=== PATIENT | male | born 1980 | race American Indian/Alaskan Native ===

== ENCOUNTER 2017-12-27 03:25 | Emergency (ER) | payer SELFPAY ==
[2017-12-27 03:34] VITALS: BP 109/67
--- NOTE | 2017-12-27 04:21 | XRay Report ---
FINAL REPORT EXAM: XR ANKLE 2V LT HISTORY: foriegn object in ankle/needle COMPARISONS: None. FINDINGS: Two views left ankle A fine linear metallic fragment is present at the distal aspect of the left lateral malleolus measuring up to 13 millimeters in length. Mild overlying soft tissue swelling. Intact ankle mortise. No fracture. IMPRESSION: A 13 millimeter needle is present at the distal aspect of the left lateral malleolus.
[2017-12-27] MEDS ORDERED: BOOSTRIX IM ONE (05:02)
[2017-12-27] MEDS ORDERED: MOTRIN PO ONE (05:03)
[2017-12-27] MEDS ORDERED: NORCO 5/325 PO ONE (05:03)
--- NOTE | 2017-12-27 05:03 | Emergency Department Report ---
- General Chief complaint: Skin/Abscess/Foreign Body Stated complaint: FOREIGN OBJECT RT FOOT Time Seen by Provider: 12/27/17 04:26 Source: patient, EMS Mode of arrival: Wheelchair Limitations: No Limitations - History of Present Illness Initial comments: 37-year-old male presents with complaint of accidentally rolling over in bed and hitting a sewing needle he left on his bed. States that it is embedded in his left ankle region near his left lateral malleolus. Patient is ambulatory and denies any other injuries. Single visible puncture wound to left lateral malleolus region. Unknown tetanus vaccine status. MD complaint: foreign body, other -: During the night Severity: moderate Severity scale (0 -10): 7 Quality: sharp Consistency: constant Worsens with: palpation - Related Data Previous Rx's Medication Instructions Recorded Last Taken Type Bacitracin Zinc [Antibiotic] 1 applicatio TP BID #1 oint...g. 12/27/17 Unknown Rx Ibuprofen [Motrin] 800 mg PO Q8HR PRN #20 tablet 12/27/17 Unknown Rx Sulfamethoxazole/Trimethoprim 1 each PO BID #14 tablet 12/27/17 Unknown Rx [Bactrim DS TAB] Allergies Allergy/AdvReac Type Severity Reaction Status Date / Time No Known Allergies Allergy Unverified 12/27/17 03:34 Abscess Boil HPI - HPI Chief Complaint: Skin/Abscess/Foreign Body Stated Complaint: FOREIGN OBJECT RT FOOT Time Seen by Provider: 12/27/17 04:26 Home Medications: Previous Rx's Medication Instructions Recorded Last Taken Type Bacitracin Zinc [Antibiotic] 1 applicatio TP BID #1 oint...g. 12/27/17 Unknown Rx Ibuprofen [Motrin] 800 mg PO Q8HR PRN #20 tablet 12/27/17 Unknown Rx Sulfamethoxazole/Trimethoprim 1 each PO BID #14 tablet 12/27/17 Unknown Rx [Bactrim DS TAB] Allergies/Adverse Reactions: Allergies Allergy/AdvReac Type Severity Reaction Status Date / Time No Known Allergies Allergy Unverified 12/27/17 03:34 ED Review of Systems ROS: Stated complaint: FOREIGN OBJECT RT FOOT Other details as noted in HPI Constitutional: denies: chills, fever Eyes: denies: eye pain, eye discharge, vision change ENT: denies: ear pain, throat pain Respiratory: denies: cough, shortness of breath, wheezing Cardiovascular: denies: chest pain, palpitations Endocrine: no symptoms reported Gastrointestinal: denies: abdominal pain, nausea, diarrhea Genitourinary: denies: urgency, dysuria Musculoskeletal: denies: back pain, joint swelling, arthralgia Skin: denies: rash, lesions Neurological: denies: headache, weakness, paresthesias Psychiatric: denies: anxiety, depression Hematological/Lymphatic: denies: easy bleeding, easy bruising ED Past Medical Hx - Past Medical History Previous Medical History?: No - Surgical History Past Surgical History?: No - Social History Smoking Status: Current Every Day Smoker Substance Use Type: None - Medications Home Medications: Home Medications Medication Instructions Recorded Confirmed Last Taken Type Bacitracin Zinc [Antibiotic] 1 applicatio TP BID #1 oint...g. 12/27/17 Unknown Rx Ibuprofen [Motrin] 800 mg PO Q8HR PRN #20 tablet 12/27/17 Unknown Rx Sulfamethoxazole/Trimethoprim 1 each PO BID #14 tablet 12/27/17 Unknown Rx [Bactrim DS TAB] ED Physical Exam - General Limitations: No Limitations General appearance: alert, in no apparent distress - Head Head exam: Present: atraumatic, normocephalic - Eye Eye exam: Present: normal appearance - ENT ENT exam: Present: mucous membranes moist - Neck Neck exam: Present: normal inspection - Respiratory Respiratory exam: Present: normal lung sounds bilaterally. Absent: respiratory distress - Cardiovascular Cardiovascular Exam: Present: regular rate, normal rhythm. Absent: systolic murmur, diastolic murmur, rubs, gallop - GI/Abdominal GI/Abdominal exam: Present: soft, normal bowel sounds - Rectal Rectal exam: Present: deferred - Extremities Exam Extremities exam: Present: normal inspection - Expanded Lower Extremity Exam Left Ankle exam: Present: tenderness (visible puncture wound and tenderness left lateral ankle) Neuro vascular tendon exam: Present: no vascular compromise 1 - Puncture wound here - Back Exam Back exam: Present: normal inspection - Neurological Exam Neurological exam: Present: alert, oriented X3, CN II-XII intact, normal gait - Psychiatric Psychiatric exam: Present: normal affect, normal mood - Skin Skin exam: Present: warm, dry, intact, normal color. Absent: rash ED Course Vital Signs 12/27/17 12/27/17 03:28 05:16 Temperature 98.1 F Pulse Rate 83 Respiratory 18 18 Rate Blood Pressure 109/67 O2 Sat by Pulse 99 Oximetry ED Medical Decision Making - Medical Decision Making A/P: Full of metallic foreign body left ankle 1-successful removal of tip of sewing needle. I anesthetized the area with 3-4 mL of 1% lidocaine, achieved good local anesthesia and using curved hemostats was able to easily localize the tip of the sewing needle using hemostats. Was able to staff physical therapy assistant it and easily extracted. Small slit incision made in order to insert hemostats and skin. 2 Prolene sutures placed afterward to shut incision site. Sutures to be removed in approximately 10 days 2-Bactrim twice a day 7 days 3-Motrin when necessary [id number] x-ray shows no presence of foreign body 5- tetanus vaccine updated today. I advised patient to return to the ED for any period 1 drainage or erythema at site of extraction Critical care attestation.: If time is entered above; I have spent that time in minutes in the direct care of this critically ill patient, excluding procedure time. ED Disposition Clinical Impression: Foreign body (FB) in soft tissue Disposition: DC-01 TO HOME OR SELFCARE Is pt being admited?: No Does the pt Need Aspirin: No Condition: Stable Instructions: Soft Tissue Foreign Body (ED), Suture Care (ED), Puncture Wound ( ED) Additional Instructions: Have sutures removed in 10-14 days. Patient can return to the ED for this Prescriptions: Bacitracin Zinc [Antibiotic] 1 applicatio TP BID #1 oint...g. Ibuprofen [Motrin] 800 mg PO Q8HR PRN #20 tablet PRN Reason: Pain Sulfamethoxazole/Trimethoprim [Bactrim DS TAB] 1 each PO BID #14 tablet Referrals: [facility] [Provider Group] - 3-5 Days Time of Disposition: 06:19
[2017-12-27] MEDS ORDERED: XYLOCAINE 2% INFILTRATI ONE (06:03)
--- NOTE | 2017-12-27 08:53 | XRay Report ---
FINAL REPORT EXAM: XR ANKLE 2V LT HISTORY: s/p FB removal of sewing needle COMPARISONS: None. FINDINGS: AP and lateral views left ankle Interval removal of metallic foreign body from the soft tissues just distal to the lateral malleolus. Mild overlying soft tissue swelling and subcutaneous emphysema are present. No residual radiodense foreign body. No gross malalignment or fracture. IMPRESSION: Interval removal of radiodense foreign body from soft tissues just distal to the left lateral malleolus. No residual foreign body or osseous abnormality identified. There is mild associated soft tissue swelling and subcutaneous emphysema.
== END 2017-12-27 06:45 | disposition home or self-care (01) ==
LOC: ED 03:25
DX: S91.042A Puncture wound with foreign body, left ankle, initial encounter (principal); S90.552A Superficial foreign body, left ankle, initial encounter; F17.200 Nicotine dependence, unspecified, uncomplicated; W22.8XXA Striking against or struck by other objects, initial encounter; Y93.89 Activity, other specified; Y99.8 Other external cause status; Y92.89 Other specified places as the place of occurrence of the external cause
CPT/HCPCS: 90471; 90715

== ENCOUNTER 2019-01-09 22:30 | Emergency (ER) | payer OTHER ==
--- NOTE | 2019-01-10 00:04 | XRay Report ---
PROCEDURE: XR SPINE LUMBOSACRAL 2-3V TECHNIQUE: Frontal and lateral views lumbar spine HISTORY: lower back pain COMPARISONS: None FINDINGS: There is mild levocurvature of the lumbar spine. The vertebral heights and disc spaces are maintained. There is no evidence of fracture or subluxation. The paraspinous soft tissues are unremarkable. IMPRESSION: 1. Mild levocurvature of the lumbar spine. 2. No evidence of fracture or subluxation. If there is a clinical concern for fracture, CT imaging may be helpful. If there is no clinical isis rn for fracture but the patient remains symptomatic, MRI may be helpful. This document is electronically signed by Dori Delgado MD., January 10 2019 12:02:01 AM ET
[2019-01-10] MEDS ORDERED: ULTRAM PO ONE (01:12)
--- NOTE | 2019-01-10 01:58 | Emergency Department Report ---
ED Back Pain/Injury HPI - General Chief Complaint: Back Pain/Injury Stated Complaint: BACK PAIN Time Seen by Provider: 01/10/19 01:12 Source: patient Limitations: No Limitations - History of Present Illness Initial Comments: pt presents for low back pain acute no chronic there has bee no fall, injury ,or truama . Complaint: back pain Onset/Timin -: week(s) Similar Symptoms Previously: Yes Place: home Radiation: none Severity: mild Severity scale (0 -10): 4 Quality: aching Consistency: constant Improves With: none Worsens With: none, immobilization, movement, walking Context: unknown Associated Symptoms: denies: numbness, difficulty urinating, incontinence, fever/chills - Related Data Previous Rx's Medication Instructions Recorded Last Taken Type Bacitracin Zinc [Antibiotic] 1 applicatio TP BID #1 oint...g. 12/27/17 Unknown Rx Sulfamethoxazole/Trimethoprim 1 each PO BID #14 tablet 12/27/17 Unknown Rx [Bactrim DS TAB] Cyclobenzaprine [Flexeril] 10 mg PO TID PRN #30 tablet 01/10/19 Unknown Rx Ibuprofen [Motrin 800 MG tab] 800 mg PO Q8HR PRN #20 tablet 01/10/19 Unknown Rx Menthol/Camphor [[place] 1 applicatio TP QID PRN #1 tube 01/10/19 Unknown Rx Ointment] Allergies Allergy/AdvReac Type Severity Reaction Status Date / Time No Known Allergies Allergy Unverified 12/27/17 03:34 ED Review of Systems ROS: Stated complaint: BACK PAIN Other details as noted in HPI Constitutional: no symptoms reported Eyes: denies: eye pain, eye discharge, vision change ENT: denies: ear pain, throat pain Respiratory: denies: cough, shortness of breath, wheezing Cardiovascular: denies: chest pain, palpitations Endocrine: no symptoms reported Gastrointestinal: denies: abdominal pain, nausea, diarrhea Genitourinary: denies: urgency, dysuria Musculoskeletal: denies: back pain, joint swelling, arthralgia Skin: denies: rash, lesions Neurological: denies: headache, weakness, paresthesias Psychiatric: denies: anxiety, depression Hematological/Lymphatic: denies: easy bleeding, easy bruising ED Past Medical Hx - Past Medical History Previous Medical History?: No - Surgical History Past Surgical History?: No - Social History Smoking Status: Current Every Day Smoker Substance Use Type: None - Medications Home Medications: Home Medications Medication Instructions Recorded Confirmed Last Taken Type Bacitracin Zinc [Antibiotic] 1 applicatio TP BID #1 oint...g. 12/27/17 Unknown Rx Sulfamethoxazole/Trimethoprim 1 each PO BID #14 tablet 12/27/17 Unknown Rx [Bactrim DS TAB] Cyclobenzaprine [Flexeril] 10 mg PO TID PRN #30 tablet 01/10/19 Unknown Rx Ibuprofen [Motrin 800 MG tab] 800 mg PO Q8HR PRN #20 tablet 01/10/19 Unknown Rx Menthol/Camphor [[place] 1 applicatio TP QID PRN #1 tube 01/10/19 Unknown Rx Ointment] ED Physical Exam - General Limitations: No Limitations General appearance: alert, in no apparent distress - Head Head exam: Present: atraumatic, normocephalic - Eye Eye exam: Present: normal appearance, PERRL, EOMI - ENT ENT exam: Present: normal exam - Neck Neck exam: Present: normal inspection, full ROM. Absent: tenderness, menin gismus, lymphadenopathy, thyromegaly - Respiratory Respiratory exam: Present: normal lung sounds bilaterally. Absent: respiratory distress, wheezes, stridor, chest wall tenderness, accessory muscle use - Cardiovascular Cardiovascular Exam: Present: regular rate, normal rhythm, normal heart sounds. Absent: systolic murmur, diastolic murmur, rubs, gallop - GI/Abdominal GI/Abdominal exam: Present: soft, normal bowel sounds. Absent: distended, tenderness, guarding, rebound, rigid, bruit, hernia - Rectal Rectal exam: Present: deferred, normal inspection, normal rectal tone, normal prostate, prostate tenderness - Extremities Exam Extremities exam: Present: normal inspection, full ROM, normal capillary refill, calf tenderness. Absent: tenderness, pedal edema, joint swelling - Back Exam Back exam: Present: normal inspection, full ROM, tenderness, muscle spasm. Absent: CVA tenderness (R), CVA tenderness (L), paraspinal tenderness, vertebral tenderness, rash noted - Expanded Back Exam Expanded Back exam: Present: saddle anesthesia, decreased rectal tone Back exam: Negative Straight Leg Raising: Left, Right - Neurological Exam Neurological exam: Present: alert, oriented X3, CN II-XII intact, normal gait, reflexes normal. Absent: motor sensory deficit - Expanded Neurological Exam Expanded Patient oriented to: Present: person, place, time Speech: Present: fluid speech Cranial nerves: EOM's Intact: Normal, Gag Reflex: Normal, Tongue Deviation: Normal, Nystagmus: Normal, Facial Sensation: Normal Cerebellar function: Finger to Nose: Normal, Heel to Melo: Normal, Romberg: Normal Upper motor neuron: Matt Neglect: Normal, Pronator Drift: Normal, Babinski Sign: Normal, Sensory Extinction: Normal Sensory exam: Upper Extremity Light Touch: Normal, Upper Extremity Pin Prick: Normal, Upper Extremity Temperature: Normal, UE 2 Point Discrimination: Normal, Lower Extremity Pin Prick: Normal Motor strength exam: RUE: 5, LUE: 5, RLE: 5, LLE: 5 DTR: bicep (R): 2+, bicep (L): 2+, tricep (R): 2+, tricep (L): 2+, knee (R): 2+, knee (L): 2+, ankle (R): 2+, ankle (L): 2+ Best Eye Response ([place]): (4) open spontaneously Best Motor Response ([place]): (6) obeys commands Best Verbal Response ([place]): (5) oriented [place] Total: 15 - Psychiatric Psychiatric exam: Present: normal affect, normal mood. Absent: suicidal ideation - Skin Skin exam: Present: warm, dry, intact, normal color. Absent: rash ED Course Vital Signs 01/09/19 22:38 Temperature 98.4 F Pulse Rate 92 H Respiratory 18 Rate Blood Pressure 108/71 O2 Sat by Pulse 98 Oximetry ED Medical Decision Making - Radiology Data Radiology results: report reviewed, image reviewed no fracture no soft tissue abnormality - Medical Decision Making xray negative for fracture plan dc to home with nsaids muslcer relaxant , moist heat therapy follow up with pcp in 2 days pt verbalized agreement and under standing of discharge plan Critical care attestation.: If time is entered above; I have spent that time in minutes in the direct care of this critically ill patient, excluding procedure time. ED Disposition Clinical Impression: Back pain Qualifiers: Back pain location: low back pain Chronicity: acute Back pain laterality: left Sciatica presence: unspecified whether sciatica present Qualified Code(s): M54.5 - Low back pain Disposition: - TO HOME OR SELFCARE Is pt being admited?: No Does the pt Need Aspirin: No Condition: Stable Prescriptions: Cyclobenzaprine [Flexeril] 10 mg PO TID PRN #30 tablet PRN Reason: Muscle Spasm Ibuprofen [Motrin 800 MG tab] 800 mg PO Q8HR PRN #20 tablet PRN Reason: Pain Menthol/Camphor [[place] Ointment] 1 applicatio TP QID PRN #1 tube PRN Reason: pain [facility] - 3-5 Days Forms: Work/School Release Form(ED) Time of Disposition: 02:35
[2019-01-10 02:50] VITALS: BP 116/66
== END 2019-01-10 02:48 | disposition home or self-care (01) ==
LOC: ED 22:30
DX: M54.5 Low back pain (principal); F17.200 Nicotine dependence, unspecified, uncomplicated; Z79.899 Other long term (current) drug therapy
CPT/HCPCS: 72100; 99283

== ENCOUNTER 2021-07-19 21:52 | Emergency (ER) | payer SELFPAY ==
[2021-07-19 21:56] VITALS: BP 114/50
== END 2021-07-19 22:00 | disposition left against medical advice (07) ==
LOC: ED 21:52
DX: Z48.01 Encounter for change or removal of surgical wound dressing (principal); Z53.21 Procedure and treatment not carried out due to patient leaving prior to being seen by health care provider